=== PATIENT | male | born 1955 | race Caucasian/White ===

== ENCOUNTER 2017-02-11 08:53 | Day surgery (SDC) | payer MEDICARE ==
[2017-02-11] MEDS ORDERED: DIPRIVAN 200 MG/20 ML IV ONE (10:00)
--- NOTE | 2017-02-11 13:13 | XRAY ---
Indication: Left L3-S1 MBB. Intraoperative fluoroscopy was provided for 8 seconds. Single digital spot image submitted for interpretation demonstrates 4 posterior spinal needles with the tips projecting adjacent to the left L3-S1 superior facets. Correlate with intraoperative findings/report.
--- NOTE | 2017-02-11 14:35 | XRAY ---
8 seconds of fluoroscopy was used in surgery for a left MBB L3-S1.
[2017-02-11] MEDS ORDERED: Lactated Ringers IV ONE (15:04)
[2017-02-11] MEDS ORDERED: Kenalog-40 IM ONE (15:04)
[2017-02-11] MEDS ORDERED: Sensorcaine 0.25% 10 ML IJ ONE (15:04)
== END 2017-02-11 11:50 | disposition home or self-care (01) ==
LOC: SDC-PAIN 08:53
PROVIDERS: ATTEND Pain Medicine Interventional Pain Medicine
DX: M47.816 Spondylosis without myelopathy or radiculopathy, lumbar region (principal); M51.36 Other intervertebral disc degeneration, lumbar region; M54.16 Radiculopathy, lumbar region; M48.06 Spinal stenosis, lumbar region; M54.5 Low back pain
CPT/HCPCS: 64493; 64494; 64495; 72020; 77003; J2704; J3301

== ENCOUNTER 2020-06-23 22:39 | Emergency (ER) | payer MEDICARE ==
--- NOTE | 2020-06-23 23:10 | ERPHSYRPT ---
- History of Present Illness Time Seen by Provider: 06/23/20 23:00 Source: patient Exam Limitations: no limitations Patient Subjective Stated Complaint: pt states he has been sick for over a week occasional cough, shortness of breath, fever, and decreased energy. was tested for covid on thursday and got neg result. pt states he has rash that he noticed today. Triage Nursing Assessment: pt alert and oriented, answers questions approp. pt ambulatory with steady gait noted. respirations nonlabored with lung sounds diminished bilat. pt speaking in full sentences. skin warm and dry. heart rate 98 on monitor sinus rhythm Physician History: 64 years old male with history of hypertension, hyperlipidemia, chronic back trinh n, tobacco abuse presented in the ER with chief complaint of shortness of breath and cough for 1 week with low-grade fever. T-max of 102 almost 7 days ago and for the last couple of days temperature 99. Patient is complaining of cough productive of clear to yellow sputum moderate amount along with generalized chest soreness with body aches and fatigue. He has outpatient COVID-19 testing done which is negative. He has been using neb treatments at home with no significant relief. Denies any chest pain otherwise or palpitations. Denies any sick contact. Timing/Duration: week(s) (1), intermittent, gradual onset Activities at Onset: rest Severity of Dyspnea-Max: moderate Severity of Dyspnea-Current: moderate Possible Cause: no prior episodes Modifying Factors: Improves With: albuterol nebulizer, coughing Associated Symptoms: cough, chest pain/discomfort, fever, wheezing, productive cough, tightness Allergies/Adverse Reactions: Penicillins Allergy (Unknown, Verified 06/23/20 22:58) Home Medications: Amlodipine Besylate 5 mg [Norvasc 5 mg] 5 mg PO DAILY 09/11/16 [History] Fluticasone Propionate [Flovent 110 Mcg MDI] 50 mcg IH BID 09/11/16 [History] Gabapentin [Neurontin] 600 mg PO TID 09/11/16 [History] Losartan Potassium 100 mg PO DAILY 09/11/16 [History] Meloxicam 15 mg [Meloxicam 15 MG] 15 mg PO DAILY 09/11/16 [History] Pregabalin [Lyrica] 75 mg PO BID 09/11/16 [History] Tizanidine HCl 4 mg [Zanaflex 4 MG] 4 mg PO BID 09/11/16 [History] hydroCHLOROthiazide [Hydrochlorothiazide] 12.5 mg PO DAILY 09/11/16 [History] Esomeprazole Magnesium [Nexium] 20 mg PO DAILY 12/26/16 [History] Albuterol 2.5 mg/3 ml Neb [Proventil 2.5 mg/3 ml Neb] 2.5 mg IH Q4-6HPRN PRN 06/23/20 [History] Hydrocodone/APAP 10/325 mg [[place] 10/325 MG Tablet] 1 tab PO QID 06/23/20 [History] Lisinopril 20 mg [Zestril 20 MG] 20 mg PO DAILY 06/23/20 [History] Hx Tetanus, Diphtheria Vaccination/Date Given: Yes Hx Influenza Vaccination/Date Given: Yes Hx Pneumococcal Vaccination/Date Given: No Immunizations Up to Date: Yes Travel Risk - International Travel Have you traveled outside of the country in past 3 weeks: No - Coronavirus Screening Are you exhibiting any of the following symptoms?: Yes Symptoms: Fever, Shortness of Breath, Headaches/Body Aches/Fatigue Close contact with a COVID-19 positive Pt in past 14-21 Days: No - Review of Systems Constitutional: Fever, Chills, Fatigue Eyes: No Symptoms Respiratory: Cough, Dyspnea, Wheezing Cardiac: No Symptoms Abdominal/Gastrointestinal: No Symptoms Genitourinary Symptoms: No Symptoms Musculoskeletal: No Symptoms Skin: No Symptoms Neurological: No Symptoms Psychological: No Symptoms Endocrine: No Symptoms Hematologic/Lymphatic: No Symptoms Immunological/Allergic: No Symptoms - Past Medical History Cardiac History: Hypertension Other Medical History: chronic back pain - Past Surgical History Past Surgical History: Yes Gastrointestinal: Appendectomy - Social History Smoking Status: Current every day smoker How long have you smoked: yrs Exposure to second hand smoke: No Drug Use: none Patient Lives Alone: No - Nursing Vital Signs Nursing Vital Signs: Initial Vital Signs Temperature 98.4 F 06/23/20 22:40 Pulse Rate 90 06/23/20 22:40 Respiratory Rate 22 06/23/20 22:40 Blood Pressure 141/82 06/23/20 22:40 O2 Sat by Pulse Oximetry 98 06/23/20 22:40 Pain Scale Pain Intensity 0 - Physical Exam General Appearance: no apparent distress, alert Eye Exam: PERRL/EOMI Ears, Nose, Throat Exam: hearing grossly normal, pharyngeal erythema Neck Exam: normal inspection, non-tender, supple, full range of motion Respiratory Exam: normal breath sounds, wheezing Cardiovascular/Chest Exam: normal heart sounds, regular rate/rhythm Abdominal/Gastrointestinal Exam: soft, normal bowel sounds Extremity Exam: non-tender, normal range of motion, normal inspection Neurologic Exam: alert, oriented x 3, cooperative, liner reroll tender II-XII nml as tested Skin Exam: normal color, warm SpO2 Interpretation: normal SpO2: 99 O2 Delivery: Room Air - Course Nursing assessment & vital signs reviewed: Yes EKG Interpreted by Me: RATE (81), NORMAL AXIS, NORMAL INTERVALS, NORMAL QRS Ordered Tests: Active Orders 24 hr Category Date Time Status Extractor Puller STAT Care 06/23/20 22:58 Active EKG-ER Only STAT Care 06/23/20 22:58 Active IV Insertion STAT Care 06/23/20 22:57 Active IV Insertion-2nd Peripheral STAT Care 06/23/20 22:57 Active Pulse Oximetry (ED) STAT Care 06/23/20 22:58 Active CHEST 1 VIEW (PORTABLE) Stat Exams 06/23/20 23:02 Taken BLOOD CULTURE Stat Lab 06/23/20 23:00 Received CBC W DIFF Stat Lab 06/23/20 22:50 Completed CMP Stat Lab 06/23/20 22:50 Completed Lactic Acid Stat Lab 06/23/20 23:07 Ordered MAG [MAGNESIUM] Stat Lab 06/24/20 00:11 Completed TROPONIN Q3H Lab 06/23/20 22:50 Completed Respiratory Therapy Assessment DAILY RT 06/23/20 23:39 Completed Medication Summary Discontinued Medications Generic Name Dose Route Start Last Admin Trade Name Freq PRN Reason Stop Dose Admin Albuterol/Ipratropium 3 ml 06/23/20 23:11 06/23/20 23:34 Duoneb 0.5-3 Mg/3 Ml Neb IH 06/23/20 23:12 3 ml STAT ONE Administration Albuterol/Ipratropium Confirm 06/23/20 23:28 Duoneb 0.5-3 Mg/3 Ml Neb Administered 06/23/20 23:29 Dose 3 ml IH .STK-MED ONE Doxycycline Hyclate 100 mg 06/24/20 00:02 06/24/20 00:21 Vibramycin 100 Mg PO 06/24/20 00:03 100 mg STAT ONE Administration Doxycycline Hyclate Confirm 06/24/20 00:18 Vibramycin 100 Mg Administered 06/24/20 00:19 Dose 100 mg .ROUTE .STK-MED ONE Sodium Chloride 1,000 mls @ 999 mls/hr 06/24/20 00:02 06/24/20 00:21 Sodium Chloride 0.9% 1000 Ml IV 06/24/20 01:02 999 mls/hr .Q1H1M STA Administration Sodium Chloride Confirm 06/24/20 00:18 Sodium Chloride 0.9% 1000 Ml Administered 06/24/20 00:19 Dose 1,000 mls @ ud .ROUTE .STK-MED ONE Methylprednisolone Sodium Succinate 125 mg 06/23/20 23:11 06/23/20 23:24 Solu-Medrol 125 Mg IV 06/23/20 23:12 125 mg STAT ONE Administration Methylprednisolone Sodium Succinate Confirm 06/23/20 23:22 Solu-Medrol 125 Mg Administered 06/23/20 23:23 Dose 125 mg .ROUTE .STK-MED ONE Potassium Chloride 40 meq 06/23/20 23:31 06/23/20 23:32 Klor Con 10 Meq PO 06/23/20 23:32 40 meq STAT ONE Administration Potassium Chloride Confirm 06/23/20 23:32 Klor Con 10 Meq Administered 06/23/20 23:33 Dose 40 meq PO .STK-MED ONE Lab/Rad Data: Laboratory Result Diagrams 06/23/20 22:50 06/23/20 22:50 Laboratory Results 06/23/20 06/23/20 06/23/20 Range/Units 22:50 22:50 22:50 WBC (4.0-10.5) K/mm3 RBC (4.1-5.6) M/mm3 Hgb (12.5-18.0) gm/dl Hct (42-50) % MCV (78-100) fl MCH (26-32) pg MCHC (32-36) g/dl RDW (11.5-14.0) % Plt Count (150-450) K/mm3 MPV (7.5-11.0) fl Gran % (36.0-66.0) % Eos # (Auto) (0-0.5) Absolute Lymphs (auto) (1.0-4.6) Absolute Monos (auto) (0.0-1.3) Lymphocytes % (24.0-44.0) % Monocytes % (0.0-12.0) % Eosinophils % (0.00-5.0) % Basophils % (0.0-0.4) % Absolute Granulocytes (1.4-6.9) Basophils # (0-0.4) Sodium 128 L (137-145) mmol/L Potassium 2.8 L* (3.5-5.1) mmol/L Chloride 95 L (98-107) mmol/L Carbon Dioxide 23 (22-30) mmol/L Anion Gap 13.5 (5-15) MEQ/L BUN 14 (9-20) mg/dL Creatinine 0.93 (0.66-1.25) mg/dL Estimated GFR > 60.0 ML/MIN Glucose 118 H (74-106) mg/dL Calcium 8.8 (8.4-10.2) mg/dL Magnesium 1.7 (1.6-2.3) mg/dL Total Bilirubin 2.00 H (0.2-1.3) mg/dL AST 47 (17-59) U/L ALT 92 H (0-50) U/L Alkaline Phosphatase 271 H (38-126) U/L Troponin I 0.014 (0.000-0.034) ng/mL Serum Total Protein 6.7 (6.3-8.2) g/dL Albumin 3.6 (3.5-5.0) g/dL 06/23/20 Range/Units 22:50 WBC 8.3 (4.0-10.5) K/mm3 RBC 4.08 L (4.1-5.6) M/mm3 Hgb 12.5 (12.5-18.0) gm/dl Hct 36.4 L (42-50) % MCV 89.2 (78-100) fl MCH 30.6 (26-32) pg MCHC 34.3 (32-36) g/dl RDW 12.9 (11.5-14.0) % Plt Count 350 (150-450) K/mm3 MPV 9.0 (7.5-11.0) fl Gran % 88.2 H (36.0-66.0) % Eos # (Auto) 0.39 (0-0.5) Absolute Lymphs (auto) 0.35 L (1.0-4.6) Absolute Monos (auto) 0.23 (0.0-1.3) Lymphocytes % 4.2 L (24.0-44.0) % Monocytes % 2.8 (0.0-12.0) % Eosinophils % 4.7 (0.00-5.0) % Basophils % 0.1 (0.0-0.4) % Absolute Granulocytes 7.32 H (1.4-6.9) Basophils # 0.01 (0-0.4) Sodium (137-145) mmol/L Potassium (3.5-5.1) mmol/L Chloride (98-107) mmol/L Carbon Dioxide (22-30) mmol/L Anion Gap (5-15) MEQ/L BUN (9-20) mg/dL Creatinine (0.66-1.25) mg/dL Estimated GFR ML/MIN Glucose (74-106) mg/dL Calcium (8.4-10.2) mg/dL Magnesium (1.6-2.3) mg/dL Total Bilirubin (0.2-1.3) mg/dL AST (17-59) U/L ALT (0-50) U/L Alkaline Phosphatase (38-126) U/L Troponin I (0.000-0.034) ng/mL Serum Total Protein (6.3-8.2) g/dL Albumin (3.5-5.0) g/dL - Progress Progress: improved, re-examined Air Movement: good Progress Note: 06/24/20 64 years old is evaluated for off-and-on low-grade fever with cough and shortness of breath. Patient is not in any distress on presentation in the ER. Has minimal wheezing and given breathing treatment and steroid, on reevaluation feeling better. EKG showed normal sinus rhythm with no acute ischemic changes. Negative troponins. Normal white count. Chest x-ray did not show any acute pneumonic infiltrate. CMP showed mild hyponatremia and hypokalemia. Given oral potassium replacement. Patient later on reported that he has been feeling dehydrated and has been drinking a lot of water and tea which is probably the reason for his hyponatremia. He is advised to limit on his free water intake to 1 L a day and will give oral potassium for next few days and recommended recheck with primary care. He is also given a bolus of fluid. Patient does not have any respiratory distress or toxic appearance. I believe patient has COPD bronchitis and will start on doxycycline along with prednisone. Discussed signs symptoms of worsening needing return to ER which he seems understanding. Stable for discharge. Blood Culture(s) Obtained: Yes Antibiotics given: Yes Counseled pt/family regarding: lab results, diagnosis, need for follow-up, rad results, smoking cessation - Departure Departure Disposition: Home Clinical Impression: COPD with acute bronchitis, Hypokalemia, Hyponatremia Condition: Stable Critical Care Time: No Referrals: EULALIO DEY MD [Primary Care Provider] - Follow Up with PCP/3 days Instructions: Chronic Obstructive Pulmonary Disease, Exacerbation of COPD (DC) Additional Instructions: Limit your free water intake to 1 L per 24-hour for the next couple of days. Follow-up with your primary care physician for reevaluation and recheck of sodium and potassium. Continue with nebulizer treatments every 4-6 hourly. Return to ER for any worsening. Take Tylenol as needed. Prescriptions: Prednisone 20 mg [Deltasone 20 mg] 60 mg PO DAILY 5 Days #15 tablet Potassium Chloride 20 meq PO DAILY 5 Days #5 tab.er.prt Doxycycline Hyclate 100 mg [Vibramycin 100 MG] 100 mg PO BID #14 tab
[2020-06-23] MEDS ORDERED: solu-MEDROL 125 MG IV ONE (23:11)
[2020-06-23] MEDS ORDERED: DUONEB 0.5-3 MG/3 ml Neb IH ONE ×2 (23:11→23:28)
[2020-06-23 23:16] LABS: Absolute Neutrophil Ct (ANC) 7.32 (1.4-6.9); BASOPHIL % 0.1 % (0.0-0.4); Basophil (Absolute #) 0.01 (0-0.4); Eosinophil % 4.7 % (0.00-5.0); Eosinophil (Absolute #) 0.39 (0-0.5); Hematocrit 36.4 % (42-50); Hemoglobin 12.5 gm/dl (12.5-18.0); Lymphocyte (Absolute #) 0.35 (1.0-4.6); Lymphocytes % 4.2 % (24.0-44.0); Mean Cell Volume 89.2 fl (78-100); Mean Corpuscular Hemoglobin 30.6 pg (26-32); Mean Corpuscular Hgb Concent. 34.3 g/dl (32-36); Monocyte (Absolute #) 0.23 (0.0-1.3); Monocytes % 2.8 % (0.0-12.0); Neutrophil % 88.2 % (36.0-66.0); Platelet Count 350 K/mm3 (150-450); Red Blood Count 4.08 M/mm3 (4.1-5.6); Red Cell Distribution Width 12.9 % (11.5-14.0); White Blood Count 8.3 K/mm3 (4.0-10.5)
[2020-06-23] MEDS ORDERED: solu-MEDROL 125 MG ONE (23:22)
[2020-06-23 23:28] LABS: ALBUMIN 3.6 g/dL (3.5-5.0); ALKALINE PHOSPHATASE 271 U/L (38-126); ANION GAP 13.5 MEQ/L (5-15); BLOOD UREA NITROGEN 14 mg/dL (9-20); CHLORIDE 95 mmol/L (98-107); Calcium 8.8 mg/dL (8.4-10.2); Carbon Dioxide 23 mmol/L (22-30); Creatinine 1 0.93 mg/dL (0.66-1.25); Glucose 118 mg/dL (74-106); SGOT/AST 47 U/L (17-59); SGPT/ALT 92 U/L (0-50); SODIUM 128 mmol/L (137-145); Total Protein 6.7 g/dL (6.3-8.2)
[2020-06-23 23:31] LABS: Potassium 2.8 mmol/L (3.5-5.1)
[2020-06-23] MEDS ORDERED: Klor Con 10 MEQ PO ONE ×2 (23:31→23:32)
[2020-06-24] MEDS ORDERED: Sodium Chloride 0.9% 1000 ML 1,000 ML IV STA (00:02)
[2020-06-24] MEDS ORDERED: Vibramycin 100 MG PO ONE (00:02)
[2020-06-24] MEDS ORDERED: Sodium Chloride 0.9% 1000 ML 1,000 ML ONE (00:18)
[2020-06-24] MEDS ORDERED: Vibramycin 100 MG ONE (00:18)
[2020-06-24 01:17] VITALS: BP 123/66; PULSE 73; O2SAT 98
[2020-06-24 01:59] LABS: Slide Review 1 YES
--- NOTE | 2020-06-24 07:50 | XRAY ---
Indication: Short of breath. Comparison: None Portable apical lordotic chest hyperinflated with minimal bibasilar fibrosis/scarring. No focal infiltrate, consolidation, or large effusion. Heart is not enlarged for AP portable technique. Bony thorax intact with mild osteopenia and minimal degenerative changes. Impression: Nonacute hyperinflated chest with chronic features.
== END 2020-06-24 01:38 | disposition home or self-care (01) ==
LOC: ED 22:39
DX: J44.0 Chronic obstructive pulmonary disease with (acute) lower respiratory infection (principal); J20.9 Acute bronchitis, unspecified; E87.6 Hypokalemia; E87.1 Hypo-osmolality and hyponatremia; I10 Essential (primary) hypertension; E78.5 Hyperlipidemia, unspecified
CPT/HCPCS: 36000; 36415; 71045; 80053; 83735; 84484; 85025; 87040; 93005; 93041; 94640; 94760; 96374; 99284; J2930; A9270-GY